=== PATIENT | female | born 2000 | race Caucasian/White ===

== ENCOUNTER 2020-07-24 01:44 | Emergency (ER) | payer OTHER ==
--- NOTE | 2020-07-24 02:52 | ED Physician Documentation ---
PD HPI UPPER EXT INJURY - Stated complaint Stated Complaint: L THUMB PX - Chief complaint Chief Complaint: Ext Problem - History obtained from History obtained from: Patient - History of Present Illness Location: Left, Finger (thumb) Type of injury: Blunt / blow Where injury occurred: Work Timing - onset: Enter time (2329), Today Timing - duration: Hours Timing - details: Abrupt onset, Still present Improved by: Rest, Immobilization Worsened by: Moving, Palpating Associated symptoms: Swelling. No: Weakness, Numbness, Tingling Contributing factors: Work related. 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 She felt a pop or a snap associated with this and now has pain over the first metacarpal. She is able to flex and extend the thumb. Review of Systems Constitutional: denies: Fever Nose: denies: Congestion Throat: denies: Sore throat Respiratory: denies: Cough GI: denies: Vomiting PD PAST MEDICAL HISTORY - Past Medical History Past Medical History: No - Past Surgical History Past Surgical History: No - Present Medications Home Medications: Ambulatory Orders Medication Instructions Recorded Confirmed No Known Home Medications 07/24/20 07/24/20 - Allergies Allergies/Adverse Reactions: Allergies Allergy/AdvReac Type Severity Reaction Status Date / Time No Known Drug Allergies Allergy Verified 07/24/20 01:52 - Social History Does the pt smoke?: No Smoking Status: Never smoker Does the pt drink ETOH?: No Does the pt have substance abuse?: No - Immunizations Immunizations are current?: Yes - POLST Patient has POLST: No PD ED PE NORMAL - Vitals Vital signs reviewed: Yes (Hypertensive) - General General: Alert and oriented X 3, No acute distress, Well developed/nourished - HEENT HEENT: Atraumatic, PERRL, EOMI - Respiratory Respiratory: No respiratory distress - Derm Derm: Normal color, Warm and dry, No rash - Extremities Extremities: No deformity, No edema, Other (Point tenderness over the midshaft of the first metacarpal of the left hand. 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 No acute findings.), EMP read indepedently, See rad report Procedures - Splint (location) Left thumb Splint applied by: Nurse Type of splint: Thumb spica (Velcro) Other: Patient tolerated well, No complications, Neurovascular intact, Good alignment PD MEDICAL DECISION MAKING - ED course Complexity details: considered differential, d/w patient ED course: 89 year-old female has injured her left thumb without evidence of fracture and she is placed into a thumb spica and instructed that she may need to wear this as long as 2 weeks. Departure - Departure Disposition: 01 Home, Self Care Clinical Impression: Left thumb sprain Qualifiers: Encounter type: initial encounter Sprain of finger site: metacarpophalangeal joint Qualified Code(s): S63.642A - Sprain of metacarpophalangeal joint of left thumb, initial encounter Condition: Stable Instructions: ED Sprain Finger Follow-Up: MADELAINE Fontana [Provider Group] Discharge Date/Time: 07/24/20 02:57
[2020-07-24 02:58] VITALS: BP 139/69
--- NOTE | 2020-07-24 08:24 | XRAY Report ---
PROCEDURE: Hand 3 View LT INDICATIONS: L thumb pain over 1st MC TECHNIQUE: 3 views of the hand(s) acquired. COMPARISON: None FINDINGS: Bones: No fractures or dislocations. No suspicious bony lesions. Soft tissues: No suspicious soft tissue calcifications. IMPRESSION: No acute finding. Reviewed by: Ashish Buckner MD on 07/24/2020 8:23 AM PDT Approved by: Ashish Buckner MD on 07/24/2020 8:23 AM PDT Station ID: [id number]
== END 2020-07-24 02:57 | disposition home or self-care (01) ==
LOC: ED 01:44
DX: S63.642A Sprain of metacarpophalangeal joint of left thumb, initial encounter (principal); X50.1XXA Overexertion from prolonged static or awkward postures, initial encounter; Y93.89 Activity, other specified; Y92.813 Airplane as the place of occurrence of the external cause; Y99.1 Military activity
CPT/HCPCS: 99282; 99283